=== PATIENT | female | born 1990 | race Caucasian/White ===

== ENCOUNTER 2024-04-23 05:18 | Inpatient (IN) ==
[2024-04-23] MEDS ORDERED: Prochlorperazine 5 mg/ml 2 ml VIAL (10 mg) IV PRN (06:35)
[2024-04-23] MEDS ORDERED: Lidocaine 1% VIAL 10 MG/ML 30 ML VIAL INJ PRN (06:35)
[2024-04-23] MEDS ORDERED: Nalbuphine 10 MG/ML 1 ML VIAL IV PRN (06:35)
[2024-04-23] MEDS ORDERED: Oxytocin 10 UNITS/ML 1 ML VIAL IM ONE (06:38)
[2024-04-23] MEDS ORDERED: Glycerin ADULT 2.4 gm SUPP PR PRN (06:38)
[2024-04-23] MEDS ORDERED: Dibucaine 1% OINT 28.35 GM TUBE PR PRN (06:38)
[2024-04-23] MEDS ORDERED: Witch Hazel PAD JAR TOPICAL PRN (06:38)
[2024-04-23] MEDS ORDERED: Lactated Ringers 1000 ml BAG 1,000 ML IV SCH (07:00)
[2024-04-23] MEDS: Buffered Lidocaine 1% SYRIN 1 ml INTRADERM ONE (16:27)
[2024-04-23] MEDS: Lactated Ringers 1000 ml BAG 1,000 ML IV ONE (16:27)
[2024-04-23 17:36] LABS: Urine Benzodiazepine Screen None Detected (None Detect); Urine Cannabinoids Screen None Detected (None Detect); Urine Opiates Screen None Detected (None Detect)
[2024-04-23] MEDS: Lactated Ringers 1000 ml BAG 1,000 ML IV SCH (17:53)
[2024-04-24] MEDS ORDERED: Lidocaine 1% VIAL 10 MG/ML 30 ML VIAL ONE (00:21)
[2024-04-24 10:04] LABS: ABS Basophils 0.1 10^3/uL (0.0-0.1); ABS Eosinophils 0.3 10^3/uL (0.0-0.5); ABS Lymphocytes 2.8 10^3/uL (1.0-4.8); ABS Monocytes 0.6 10^3/uL (0.0-0.9); ABS Neutrophils 8.3 10^3/uL (1.5-7.6); Eosinophil % 2.3 %; Hematocrit 33.2 % (35-45); Hemoglobin 10.7 g/dL (11.5-14.3); Lymphocyte % 23.5 %; Mean Corpuscular Hemoglobin 25.8 pg (27-33); Mean Corpuscular Hgb Conc 32.2 g/dL (31-36); Mean Corpuscular Volume 80.1 fL (80-97); Mean Platelet Volume 9.4 fL (7.5-11.2); Platelet Count 261 10^3/uL (150-450); Red Blood Count 4.15 10^6/uL (3.63-4.92); Red Cell Distribution Width 15.5 % (12-17); White Blood Count 12.1 10^3/uL (3.8-11.8)
[2024-04-25 08:00] VITALS: BP 133/82
== END 2024-04-25 13:35 | disposition home or self-care (01) | DRG 560 ==
LOC: MCHOBOUT 05:18 → MCHOB 05:32
PROVIDERS: ADMIT Advanced Practice Midwife; ATTEND Advanced Practice Midwife